=== PATIENT | female | born 1945 | race Caucasian/White ===

== ENCOUNTER 2020-04-08 16:39 | Emergency (ER) | payer MEDICARE, OTHER, SELFPAY ==
[2020-04-08 16:41] VITALS: BP 204/91; PULSE 80; RESP 16; TEMP 36.4; O2SAT 95
--- NOTE | 2020-04-08 16:56 | XR_ITS ---
WS: [id number] Lumbar spine, 3 views, 04/08/2020 Clinical Data: radiculopathy Comparison: None. Findings: No compression fractures or subluxation is seen. Degenerative disc narrowing at L5-S1 is seen. There is a grade 1 spondylolisthesis of L4 on L5 of 0.6 cm.Osteoarthritic spurring of the lateral aspects o f the L2, L3 and L4 vertebral bodies is noted. The transverse processes and SI joints are unremarkabl e. There are clips in the right upper quadrant from a cholecystectomy. XR/XR lumbar spine 2-3V* [id number] Impression: 1. Moderate osteoarthritis of L2-L4. 2. Degenerative disc narrowing at L5-S1. 3. Anterolisthesis of 0.6 cm of L4 on L5.
[2020-04-08] MEDS: naproxen 500 mg Tablet 250 MG PO (17:25)
[2020-04-08 17:27] VITALS: BP 163/87; PULSE 74; RESP 16; O2SAT 94
--- NOTE | 2020-04-08 17:29 | W.ED.EXTPRO ---
HPI - Extremity Problem General: Chief complaint: Extremity Injury, Lower Stated complaint: left leg pain Time Seen by Provider: 04/08/20 16:42 History of Present Illness: HPI Narrative: This is a 74-year-old female presenting today with left leg pain. The symptoms have been present for several days and are worsening. Today she is barely able to walk due to the pain. Pain gets worse with ambulation and weightbearing. Naprosyn helps to some degree. She has been taking 1 qrcc-gnr-hbohaxg Aleve for the pain. She is concerned about a blood clot as she has a history of polycythemia vera. She has never had a blood clot. She takes an aspirin a day as a preventative measure. She also takes hydroxyurea. She is overdue to have a blood draw. She denies any trauma or fevers. No urinary or GI symptoms. No swelling, numbness, weakness in the leg. She says the pain starts in her left buttock and radiates down and around her leg to the foot. MD Complaint: extremity pain Onset (ago): day(s) (3) Pain Consistency: constant Location: left Severity scale (1-10): 9 Quality: burning and aching Radiation: distal Relieving factors: nothing Exacerbating factors: weight bearing and walking Associated symptoms: Deny chest pain, fever(s) or rash Review of Systems General: Reports: 10 or more systems reviewed and unremarkable except in HPI and below Const: Denies: fever(s), chills, fatigue or malaise Eyes: Denies: change in vision ENMT: Denies: odynophagia Card: Denies: chest pain or swelling of feet/ankles Resp: Denies: dyspnea, productive cough or non-productive cough GI: Denies: abdominal pain, nausea or vomiting : Denies: flank pain or difficulty voiding Musc: Denies: neck pain or back pain Skin/Breast: Denies: rash Neuro: Denies: headache(s), numbness in extremities or weakness in extremities Robert/Lymph: Denies: easy bruising or easy bleeding PFSH ED PFSH: Social History Smoking and tobacco status: never smoked Physical Exam Const: COMMON NORMALS: no acute distress, patient oriented x3, no limitations and alert GENERAL APPEARANCE: cooperative and comfortable HENMT: HEAD & SCALP: normal to inspection FACE & SINUS: normal facial exam Eye: GENERAL EYE: appearance normal, both eyes and all related structures Neck/C-Spine: COMMON NORMALS: supple, no meningeal signs and no JVD Chest: COMMONS NORMALS: normal inspection of the chest Resp: COMMON NORMALS: normal respiratory effort, No use of accessory muscles and clear to auscultation bilaterally AUSCULTATION: clear to auscultation bilaterally Cardio: COMMON NORMALS: no JVD, regular rate, regular rhythm and No murmurs present (Cardio) RATE: regular rate RHYTHM: regular rhythm GI: COMMON NORMALS: Normal to inspection, nondistended, normoactive bowel sounds present, Soft to palpation and non-tender INSPECTION: Yes normal to inspection AUSCULTATION: Yes normoactive bowel sounds PALPATION: Yes Soft to palpation Back/Pelvis: COMMON NORMALS: thoracic and lumbar spine normal to inspection LUMBAR SPINE/LOWER BACK: Yes straight leg raise negative bilaterally Extremity: COMMON NORMALS: normal to inspection Neuro: COMMON NORMALS: patient oriented x3, moves all extremities, no focal motor deficits and no sensory deficits noted SENSORIUM/ORIENTATION: Yes alert MENINGEAL SIGNS: Yes no meningeal signs Psych: COMMON NORMALS: mental status grossly normal, cooperative and normal affect Skin: COMMON NORMALS: no rashes or lesions noted and turgor normal GENERAL SKIN EXAM: no rashes or lesions noted and turgor normal Course Vital Signs: Vital signs: Vital Signs Temperature 97.5 F L 04/08/20 16:41 Pulse Rate 76 04/08/20 18:59 Respiratory Rate 16 04/08/20 18:59 Blood Pressure 164/91 04/08/20 18:59 Pulse Oximetry 95 04/08/20 18:59 MDM - Extremity (Nontraumatic) MDM Narrative: Medical decision making narrative: Nontraumatic left leg pain consistent with a radiculopathy. X-rays show significant osteoarthritis and bone spurring in the spine. She did not want pain medicine but agreed to have a prescription at home in case in the middle of the night she has severe pain. She will continue the Aleve and will follow up with her primary care doctor. We discussed return precautions. Discharge Plan Discharge Patient Disposition: Home, Self-Care Clinical Impression: Sciatica of left side Condition: Stable Prescriptions: New oxycodone 5 mg tablet 5 mg PO Q6H PRN (Reason: pain) Qty: 10 RF: 0 No Action hydroxyurea 500 mg capsule 500 mg PO Q48H RF: 0 aspirin 81 mg Tablet,Delayed Release (Dr/Ec) 81 mg PO DAILY RF: 0 triamcinolone acetonide 0.1 % ointment See Rx Instructions .ROUTE .COMPLEX RF: 0 Aleve 220 mg Tablet 220 mg PO BID PRN (Reason: Pain) RF: 0 losartan 25 mg tablet 25 mg PO DAILY RF: 0 Vitamin D3 25 mcg (1,000 unit) Tablet 25 mcg PO DAILY RF: 0 Discharge Orders: Discharge Order (Routine); Ordered 04/08/20 Ordered By: Starr Barkley Referrals: Danny Hobson DO [Primary Care Provider] - Discharge Diet: Usual diet Discharge Activity: Resume usual activity Patient Instructions: Lumbar Radiculopathy (ED) Discharge Date/Time: 04/08/20 19:02 Coding Level of Care Code ED Destination Sign Repairer for Terrie Fwstone Exam Comprehensive
[2020-04-08 18:59] VITALS: BP 164/91; PULSE 76; RESP 16; O2SAT 95
== END 2020-04-08 19:02 | disposition home or self-care (01) ==
PROVIDERS: Emergency Provider Emergency Medicine; PCP Family Medicine
DX: M54.32 Sciatica, left side (principal); Z79.82 Long term (current) use of aspirin
CPT/HCPCS: 12345; 72100; 99281; 99283

== ENCOUNTER → 2021-06-23 09:44 | Outpatient (BNVA) | payer MEDICARE, OTHER, SELFPAY | PROVIDERS: PCP Family Medicine; Visit Provider Nurse Practitioner Family | DX: Z20.822 Contact with and (suspected) exposure to COVID-19 (principal); J06.9 Acute upper respiratory infection, unspecified | CPT/HCPCS: 87426 ==

== ENCOUNTER → 2021-10-29 10:14 | Outpatient (BNVA) | payer MEDICARE, OTHER, SELFPAY | PROVIDERS: PCP Family Medicine; Visit Provider Podiatrist Foot & Ankle Surgery | DX: M79.671 Pain in right foot (principal) | CPT/HCPCS: 73630 ==

== ENCOUNTER 2021-11-18 15:11 | Outpatient (CLI) | payer MEDICARE, OTHER, SELFPAY ==
--- NOTE | 2021-11-18 15:45 | USCV_ITS ---
Vanita Mcdonald Age: 76 Gender: F : 1945 Exam Date: 11/18/2021 15:05 Ordering Phys: Jeremías Camejo DPM Technologist: Paxton Foley RVGovind [place] [facility] [place]: Pad RIGHT LEFT Brachial 159.00 mmHg Brachial 157.00 mmHg Pressure (mmHg) Waveform Pressure (mmHg) Waveform 166.00 Above Knee 172.00 183.00 Below Knee 196.00 183.00 MUNICIPAL CLERK 166.00 177.00 DPA 146.00 1.15 Ankle/Brachial Index 1.04 91.00 Pre-Exercise Toe Pressure 121.00 Pre-Exercise Toe/Brachial Index 0.76 0.57 FINDINGS Normal resting ALICIA bilaterally Slightly diminished resting ALICIA of 0.57 on the right side Normal resting ALICIA 0.76 on the left side PVR waveforms Blunting of the dicrotic notch bilaterally CONCLUSIONS 1. No significant arterial obstruction on the left side 2. Features of mild peripheral artery disease involving the distal vessels on the right side Dr Jos Langford MD [facility] (Electronically Signed) Final Date: 19 November 2021 18:52 S
== END 2021-11-18 15:12 | disposition home or self-care (01) ==
PROVIDERS: PCP Family Medicine; Visit Provider Podiatrist Foot & Ankle Surgery
DX: R09.89 Other specified symptoms and signs involving the circulatory and respiratory systems (principal); I73.9 Peripheral vascular disease, unspecified
CPT/HCPCS: 93923

== ENCOUNTER 2022-05-04 15:04 | Outpatient (CLI) | payer MEDICARE, OTHER, SELFPAY ==
--- NOTE | 2022-05-04 15:14 | MM_ITS ---
WS: [id number] BILATERAL 3D TOMOSYNTHESIS DIGITAL SCREENING MAMMOGRAPHY WITH CAD CLINICAL INFORMATION: SCREENING HISTORY: Screening mammogram. No current complaints. COMPARISON: [id number] TECHNIQUE: Bilateral CC and MLO views. FINDINGS: Scattered fibroglandular densities bilaterally. A few incidental punctate calcifications. No suspicio us focal mass, asymmetry, calcifications, or architectural distortion. No evidence of malignancy. MM/[place] [id number] IMPRESSION: BI-RADS: 2-Benign FOLLOW UP: 1 Year Follow-up Recommend return to annual screening mammography.
== END 2022-05-04 15:05 | disposition home or self-care (01) ==
LOC: RAD 15:05
PROVIDERS: PCP Family Medicine; Visit Provider Electrodiagnostic Medicine
DX: Z12.31 Encounter for screening mammogram for malignant neoplasm of breast (principal)
CPT/HCPCS: 77063; 77067

== ENCOUNTER → 2022-10-07 08:42 | Outpatient (BNVA) | payer MEDICARE, OTHER, SELFPAY | PROVIDERS: PCP Family Medicine; Visit Provider Podiatrist Foot & Ankle Surgery | DX: M20.11 Hallux valgus (acquired), right foot (principal); R09.89 Other specified symptoms and signs involving the circulatory and respiratory systems; Z01.818 Encounter for other preprocedural examination | CPT/HCPCS: 99213 ==

== ENCOUNTER → 2022-11-22 09:34 | Outpatient (BNVA) | payer MEDICARE, OTHER, SELFPAY | PROVIDERS: PCP Family Medicine; Referring Provider Dermatology; Visit Provider Specialist | DX: M25.551 Pain in right hip (principal); M54.30 Sciatica, unspecified side | CPT/HCPCS: 73502; 99204 ==

== ENCOUNTER → 2022-12-02 11:23 | Outpatient (BNVA) | payer MEDICARE, OTHER, SELFPAY | PROVIDERS: PCP Family Medicine; Visit Provider Podiatrist Foot & Ankle Surgery | DX: L60.0 Ingrowing nail (principal); Z01.818 Encounter for other preprocedural examination; M20.11 Hallux valgus (acquired), right foot; R09.89 Other specified symptoms and signs involving the circulatory and respiratory systems | CPT/HCPCS: 99213 ==

== ENCOUNTER 2023-03-15 12:47 | Outpatient (CLI) | payer MEDICARE, OTHER, SELFPAY ==
--- NOTE | 2023-03-15 13:09 | XR_ITS ---
WS: [id number] DEXA (DUAL ENERGY X-RAY ABSORPTIOMETRY) Bone mineral density was performed using a [employer] machine. HISTORY: POSTMENOPAUSAL COMPARISON: None available. Lumbar spine BMD (L1-L4): 1.098 g/cm2 T score: -0.7 Z score: 0.7 Total hip BMD: Left: 0.862 g/cm2. T score: -1.2 Z score: 0.4 Right: 0.844 g/cm2. T score: -1.3 Z score: 0.3 10 year probability of a major osteoporotic fracture is 13.7%. XR/XR DEXA axial skeleton* [id number] IMPRESSION: OSTEOPENIA based upon the WHO classification for females.
== END 2023-03-15 12:48 | disposition home or self-care (01) ==
LOC: RAD 12:48
PROVIDERS: PCP Family Medicine; Visit Provider Electrodiagnostic Medicine
DX: M85.80 Other specified disorders of bone density and structure, unspecified site (principal); Z78.0 Asymptomatic menopausal state
CPT/HCPCS: 77080

== ENCOUNTER 2023-05-06 12:18 | Outpatient (CLI) | payer MEDICARE, OTHER, SELFPAY ==
--- NOTE | 2023-05-06 13:13 | MM_ITS ---
WS: [id number] Bilateral screening 3D tomosynthesis digital mammogram, 05/06/2023 Clinical Data: SCREENING Comparison: 05/04/2022, 10/04/2018, 09/15/2017, 09/02/2016, 10/02/2014, 10/26/2012, 05/05/2011, 04/29/2010, 1 12/23/2007. Findings: The breast parenchymal pattern shows normal glandular tissue. No spiculated masses or clustered calci fications are seen. There are no secondary signs of carcinoma. MM/[place] [id number] Impression: 1. Negative bilateral mammogram unchanged. 2. Recommend annual screening mammograms. BIRADS: 1-Negative FOLLOW UP: 1 Year Follow-up The CAD coloring checker was used.
== END 2023-05-06 12:19 | disposition home or self-care (01) ==
LOC: RAD 12:21
PROVIDERS: PCP Family Medicine; Visit Provider Electrodiagnostic Medicine
DX: Z12.31 Encounter for screening mammogram for malignant neoplasm of breast (principal)
CPT/HCPCS: 77063; 77067

== ENCOUNTER 2024-02-17 14:40 | Outpatient (CLI) | payer MEDICARE, OTHER, SELFPAY ==
--- NOTE | 2024-02-17 14:43 | USCV_ITS ---
Vanita Mcdonald Age: 78 Gender: F : 1945 Exam Date: 02/17/2024 15:12 Ordering Phys: Ivette Lucio Technologist: CT Exam Location: [facility] – [place] Indication: swelling PROCEDURES: Venous duplex imaging was performed in only the left lower extremity. FINDINGS: dvt CONCLUSIONS DVT LEFT popliteal and peroneal veins Remainder LLE patent Prelim to Ivette DOE at time of study by sonographe Selvin Mejia MD (Electronically Signed) Final Date: 17 February 2024 16:06 S
== END 2024-02-17 14:41 | disposition home or self-care (01) ==
LOC: RAD 14:41
PROVIDERS: PCP Family Medicine; Visit Provider Physician Assistant
DX: R60.0 Localized edema (principal); I82.431 Acute embolism and thrombosis of right popliteal vein; I82.451 Acute embolism and thrombosis of right peroneal vein
CPT/HCPCS: 93971

== ENCOUNTER → 2024-04-24 13:12 | Outpatient (BNVA) | payer MEDICARE, OTHER, SELFPAY | PROVIDERS: PCP Family Medicine; Visit Provider Orthopaedic Surgery | DX: M54.9 Dorsalgia, unspecified (principal) | CPT/HCPCS: 72110; 99204 ==

== ENCOUNTER 2024-05-10 15:44 | Emergency (ER) | payer MEDICARE, SELFPAY ==
[2024-05-10 15:45] VITALS: BP 184/78; PULSE 110; RESP 18; TEMP 36.6; O2SAT 98
--- NOTE | 2024-05-10 15:57 | ED_ITS ---
HPI - Wound/Laceration General: Chief Complaint: Wound/Laceration Stated Complaint: hand wound Time Seen by Provider: 05/10/24 15:57 History of Present Illness: 79-year-old female was shucking some cor n when she accidentally cut the back of her left hand. Patient has a superficial laceration approximately 3 cm that is well-approximated to the left hand. Bleeding is controlled. Patient appears nontoxic. Patient was concerned due to being on a blood thinner. Review of Systems General: Reports: 10 or more systems reviewed and unremarkable except in HPI and below Skin/Breast: Reports: new lesions PFS ED PFSH: Social History Smoking and tobacco/nicotine status: never used tobacco/nicotine Physical Exam Const: COMMON NORMALS: alert HENMT: COMMON NORMALS: normocephalic HEAD & SCALP: normocephalic Neck/C-Spine: COMMON NORMALS: full ROM Resp: COMMON NORMALS: normal respiratory effort and clear to auscultation bilaterally AUSCULTATION: clear to auscultation bilaterally Cardio: COMMON NORMALS: regular rate and regular rhythm RATE: regular rate RHYTHM: regular rhythm : COMMON NORMALS: Yes no CVA tenderness BLADDER/KIDNEY EXAM: Yes no CVA tenderness Back/Pelvis: COMMON NORMALS: no CVA tenderness Extremity: RIGHT UPPER EXTREMITY: Yes hand & digits (3 cm superficial laceration to the dorsal left hand) Right hand and digits: Yes inspection, Yes palpation, Yes ROM exam, Yes neurovascular exam and Yes tendon exam Neuro: SENSORIUM/ORIENTATION: Yes alert Skin: TRAUMA: laceration (3 cm dorsal left hand) Course Vital Signs: Vital signs: Vital Signs Temperature 97.8 F 05/10/24 15:45 Pulse Rate 110 H 05/10/24 15:45 Respiratory Rate 18 05/10/24 15:45 Blood Pressure 184/78 05/10/24 15:45 Pulse Oximetry 98 05/10/24 15:45 Oxygen Delivery Me thod Room Air 05/10/24 15:45 MDM - Wound/Laceration Medical Decision Making 79-year-old female comes in today for complaints of laceration to the dorsal left hand. On exam patient has a 3 cm laceration that is well-approximated with bleeding controlled. No sign of tendon injury or foreign body is noted. No sign of fracture is noted. Differential diagnosis includes laceration, foreign body, fracture. Patient cannot recall her tetanus and it was updated. Wound was well-approximated and skin adhesive was applied over the wound to help secure it. Patient was then placed in a OpSite dressing and a light pressure dressing to help maintain bleeding controlled. Patient reports understanding of care plan. Patient was placed on oral antibiotics for prophylaxis. Patient reports understanding of care plan and need for follow-up or return to the ER. No radiology studies performed this visit Discharge Plan Discharge Patient Disposition: Home Clinical Impression: Laceration of hand, left Qualifiers: Encounter type: initial encounter Foreign body presence: without foreign body Qualified Code(s): S61.412A - Laceration without foreign body of left hand, initial encounter Condition: Stable Prescriptions: New amoxicillin-pot clavulanate 875-125 mg tablet 1 tab PO BID Qty: 14 0RF No Action prednisone 20 mg tablet 20 mg PO DAILY Qty: 15 0RF Rx Instructions: 60Mg for 3 days 40MG for 2 days 20Mg for 2 days amoxicillin-pot clavulanate 875-125 mg tablet 1 tab PO BID 5 Days Qty: 10 0RF benzonatate 200 mg capsule 200 mg PO BID PRN (Reason: cough) 5 Days Qty: 10 0RF losartan 25 mg tablet See Rx Instructions .ROUTE .COMPLEX Qty: 90 3RF Dose Instruction: TAKE 1 TABLET BY MOUTH EVERY DAY DIRECTED Rx Instructions: TAKE 1 TABLET BY MOUTH EVERY DAY DIRECTED hydroxyurea 500 mg capsule 500 mg PO Q48H aspirin 81 mg Tablet,Delayed Release (Dr/Ec) 81 mg PO DAILY Aleve 220 mg Tablet 220 mg PO BID PRN (Reason: Pain) Vitamin D3 25 mcg (1,000 unit) Tablet 25 mcg PO DAILY Discharge Orders: Discharge ED (Routine); Ordered 05/10/24 Ordered By: Rosendo Fitzgerald Referrals: TALAT STANTON MD [Primary Care Provider] - Discharge Diet: Usual diet Discharge Activity: Increase activity as tolerated Patient Instructions: Laceration (ED) Activity Restrictions/Additional Instructions: Keep wound clean and dry. Allow the OpSite dressing to come off in 1 week. Remove pressure dressing within 2 days. Take oral antibiotic 1 tablet twice a d ay for the next 7 days. Drink plenty of water with medication. Follow-up with primary care for further instructions. Return to ED for increasing redness and swelling to the hand, increasing pain to the hand, or increase in bleeding from the wound. Coding Level of Care Code ED Regional Transportation Manager for Terrie Vallecillo
[2024-05-10] MEDS: tetanus-dipt-pertussis 0.5 mL SDV IM (16:25)
[2024-05-10 16:36] VITALS: BP 176/82; PULSE 98; RESP 16; TEMP 36.6; O2SAT 99
== END 2024-05-10 16:31 | disposition home or self-care (01) ==
PROVIDERS: Emergency Provider Nurse Practitioner Family; PCP Family Medicine
DX: S61.412A Laceration without foreign body of left hand, initial encounter (principal); Z23 Encounter for immunization; Z79.899 Other long term (current) drug therapy; Z79.82 Long term (current) use of aspirin; W26.8XXA Contact with other sharp object(s), not elsewhere classified, initial encounter
CPT/HCPCS: 90715; 99283

== ENCOUNTER 2024-05-29 08:51 | Outpatient (CLI) | payer MEDICARE, OTHER, SELFPAY ==
--- NOTE | 2024-05-29 09:30 | MR_ITS ---
WS: [id number] MRI LUMBAR SPINE NONCONTRAST HISTORY: Back pain, pain into RIGHT hip. COMPARISON: None available. TECHNIQUE: Sagittal and axial multisequence imaging is submitted. Straightening and slight reversal of the normal lordosis in the mid cervical spine. Increase in thora cic kyphosis. L3 anterolisthesis by 3 mm. L4 anterolisthesis by 6 mm. L5 retrolisthesis by 3 mm. No acute fracture or marrow edema. Mild disc space narrowing and desiccation at L5-S1. Conus terminates normally at L1-2 disc level. L1-L2: Mild disc bulging and facet disease. L2-L3: Mild annular disc bulging with a shallow RIGHT paracentral disc protrusion. There is mild encr oachment and narrowing the central canal. More significant contact on the traversing RIGHT L3 nerve r oot in the subarticular recess. L3-L4: Marked annular disc bulging with mild ligamentum flavum and moderate facet arthritis. Fluid in the facet joints. There is a central disc protrusion which extends just slightly cephalad to the dis c level. Moderate central, bilateral subarticular recess and bilateral foraminal narrowing. There is encroachment upon the L3 and L4 nerve roots. Greatest upon the L4 nerve roots. L4-L5: Moderate annular disc bulging with facet disease. Mild central with bilateral subarticular rec ess and foraminal stenosis. L5-S1: Mild annular disc bulging without significant stenosis. Small osteophytes in the LEFT foramen. Retroperitoneum is negative. MR/MR lumbar spine wo con* [id number] IMPRESSION: 1. L3 and L4 anterolisthesis by 3 and 6 mm respectively. 2. L3-4: Moderate central, bilateral subarticular recess and foraminal stenosi s. Encroachment upon both the L3 and L4 nerve roots but greatest the traversing L4 nerve roots. 3. L4-5: Mild central with bilateral subarticular recess and foraminal stenosi s. 4. L2-3: Shallow RIGHT paracentral disc protrusion. There is mild disc contact on the traversing nerve roots, most significant on the RIGHT L3 nerve root.
== END 2024-05-29 08:52 | disposition home or self-care (01) ==
PROVIDERS: PCP Family Medicine; Visit Provider Orthopaedic Surgery
DX: M51.37 Other intervertebral disc degeneration, lumbosacral region (principal); M25.78 Osteophyte, vertebrae; M48.061 Spinal stenosis, lumbar region without neurogenic claudication; M43.16 Spondylolisthesis, lumbar region; M51.26 Other intervertebral disc displacement, lumbar region
CPT/HCPCS: 72148

== ENCOUNTER → 2024-06-07 13:16 | Outpatient (BNVA) | payer MEDICARE, OTHER, SELFPAY | PROVIDERS: PCP Family Medicine; Visit Provider Orthopaedic Surgery | DX: Z09 Encounter for follow-up examination after completed treatment for conditions other than malignant neoplasm (principal) | CPT/HCPCS: 99214 ==

== ENCOUNTER → 2024-07-10 13:59 | Outpatient (BNVA) | payer MEDICARE, OTHER, SELFPAY | PROVIDERS: PCP Electrodiagnostic Medicine; Visit Provider Orthopaedic Surgery | DX: M48.062 Spinal stenosis, lumbar region with neurogenic claudication (principal) | CPT/HCPCS: 99214 ==

== ENCOUNTER 2024-07-31 10:18 | Outpatient (CLI) | payer MEDICARE, OTHER, SELFPAY ==
[2024-07-31 10:41] LABS: Basophils % 0.5 %; Eosinophils # 0.1 10^3/uL (0.0-0.8); Hematocrit 45.2 % (36-47); Lymphocytes # 1.8 10^3/uL (0.8-4.8); Lymphocytes % 23.8 %; Mean Corpuscular Hemoglobin 27.2 pg (27-33); Mean Platelet Volume 11.3 fL (7.4-10.4); Monocytes # 0.6 10^3/uL (0.2-0.9); Monocytes % 7.2 %; Neutrophils # 5.08 10^3/uL (1.8-7.7); Neutrophils % 66.2 %; Nucleated Red Blood Cells % 0 %; Platelet Count 150 10^3/cmm (157-399); Red Blood Count 4.81 10^6/uL (3.85-5.65); Red Cell Distribution Width 15.7 % (12.1-15.1); White Blood Count 7.68 10^3/uL (3.29-11.43)
[2024-07-31 10:49] LABS: Bilirubin Urine Negative (Negative); Blood Urine Trace (Negative); Glucose Urine UA Negative (Normal); Ketones Urine Trace (Negative); Leukocyte Esterase Urine Trace (Negative); Nitrate Urine Negative (Negative); Protein Urine Trace (Negative); Urine Appearance Clear (CLEAR); Urine Color Dark Yellow (Yellow)
[2024-07-31 10:57] LABS: Albumin Level 3.7 g/dL (3.5-5.2); Alkaline Phosphatase 100 U/L (35-105); Blood Urea Nitrogen 19 mg/dL (8-23); Calcium 8.7 mg/dL (8.5-10.5); Carbon Dioxide 22 mmol/L (22-29); Chloride 105 mmol/L (98-107); Globulin 3.6 g/dL (1.3-4.6); Glucose 107 mg/dL (65-115); Osmolality Calculated 289 mOsm/kg (285-295); Sodium 138 mmol/L (136-145); Total Bilirubin 0.5 mg/dL (0.15-1.2); Total Protein 7.3 g/dL (6.6-8.7)
[2024-07-31 11:11] LABS: Alanine Aminotransferase 18 U/L (0-33); Anion Gap 15.9 (5-19); Aspartate Amino Transferase 30 U/L (0-32); Potassium 4.9 mmol/L (3.5-5.1)
[2024-07-31 11:26] LABS: UA Manual Slide Review YES; UA Slide Review UA Slide Review Perf
[2024-07-31 11:29] LABS: Add Urine Microscopic? YES; Bacteria Urine TRACE /hpf; Mucus Urine 1+ /hpf; RBC Urine 0-4 /hpf (0-2); WBC Urine 0-4 /hpf (0-5)
[2024-07-31 11:30] LABS: Add Urine Culture? No; Amorphous Sediment Urine TRACE /hpf
== END 2024-07-31 10:19 | disposition home or self-care (01) ==
LOC: LAB 10:21
PROVIDERS: PCP Electrodiagnostic Medicine; Visit Provider Orthopaedic Surgery
DX: Z01.818 Encounter for other preprocedural examination (principal)
CPT/HCPCS: 36415; 80053; 81001; 85025

== ENCOUNTER 2024-08-20 05:38 | Day surgery (SDC) | payer MEDICARE, OTHER, SELFPAY ==
--- NOTE | 2024-08-17 09:42 | SUR.PREOP ---
OPS STAFF CONTACTED 'S OFFICE REGARDING UA. PER OFFICE, THIS HAS BEEN TAKEN CARE OF & PT IS CLEARED FOR SURGERY.
[2024-08-20] VITALS (11 sets, daily range): BP systolic 108–169; BP diastolic 50–90; PULSE 74–103; RESP 17–26; TEMP 36.1–36.7; O2SAT 92–100; BMI 29.9
[2024-08-20 06:33] LABS: Bilirubin Urine Negative (Negative); Blood Urine Trace (Negative); Glucose Urine UA Negative (Normal); Ketones Urine Trace (Negative); Leukocyte Esterase Urine Trace (Negative); Nitrate Urine Negative (Negative); Protein Urine 1+ (Negative); Specific Gravity, Urine 1.023 (1.005-1.030); Urine Appearance Cloudy (CLEAR); Urine Color Dark Yellow (Yellow)
[2024-08-20] MEDS: sodium chloride 0.9% 1,000 ML 30 ML IV (06:36)
[2024-08-20 06:38] LABS: Bacteria Urine None Seen /hpf; Hyaline Casts Urine 19.02 /lpf; WBC Urine 0-5 /hpf (0-5)
--- NOTE | 2024-08-20 06:43 | ANES.PREANE2 ---
Pre-Anesthetic Assessment Height/Weight: Height 1.65 m Weight 81.647 kg Temp Pulse Resp BP Pulse Ox O2 Del Method 98.0 F 103 H 17 169/90 97 Room Air 08/20/24 06:05 08/20/24 06:05 08/20/24 06:05 08/20/24 06:05 08/20/24 06:05 08/20/24 06:15 Preop Diagnosis: Lumbar stenosis with neurogenic claudication Operation Date: 08/20/24 07:00 Proposed Procedures p Lumbar Spine Decompression Lumbar Decompression(Not Applicable) - Tommy Sharpe, DO Familial anesthetic complications: Family states her heart stopped during a hysterectomy when she was in her 40s, because she got too much anesthesia. They say chest compressions were performed, but denied any ICU stay after the procedure. She went directly to the floor. Suspect probable transient bradycardia/vagal response due to abdominal traction Was Beta Ranjana taken within 24 hours: N/A Was Clonidine taken within 24 hours: N/A Last intake: Intake Last Liquid Date 08/19/24 Last Liquid Time 23:30 Last Solid Date 08/19/24 Last Solid Time 18:00 Social No alcohol and No tobacco Exam alert, oriented x 3, clear to auscultation bilaterally and regular rate & rhythm Airway Mallampati: Class I Dentition: false CV/HEM Hypertension Polycythemia on hydroxyurea Anesthetic Plan ASA status: 3 Anesthesia: General Risk of > 500 ml blood loss (7ml/kg in children): No Medications/Allergies Home Medications Medication Instructions Recorded Confirmed Last Taken Type aspirin 81 mg tablet,delayed 81 mg PO DAILY 04/08/20 08/20/24 1 Week Ago History release ~08/10/24 cholecalciferol (vitamin D3) 25 25 mcg PO DAILY 04/08/20 08/20/24 08/16/24 History mcg (1,000 unit) tablet (Vitamin D3) hydroxyurea 500 mg capsule 500 mg PO Q48H 04/08/20 08/20/24 08/18/24 History naproxen sodium 220 mg tablet 220 mg PO BID PRN Pain 04/08/20 08/20/24 08/15/24 History (Aleve) losartan 25 mg tablet 50 mg PO DAILY 08/17/24 08/20/24 08/19/24 History Allergies Allergy/AdvReac Type Severity Reaction Status Date / Time acetaminophen [From Tylenol] Allergy Unknown Verified 06/07/24 14:04 celecoxib [From Celebrex] Allergy Unknown Verified 06/07/24 14:04 codeine Allergy Unknown Verified 06/07/24 14:04 Current Medications Generic Name Dose Route Start Last Admin Trade Name Freq PRN Reason Stop Dose Admin Sodium Chloride 1,000 mls @ 30 mls/hr 08/20/24 06:00 08/20/24 06:36 Sodium Chloride 0.9% IV 08/21/24 05:59 30 mls/hr .Q24H DELANEY Administration PFSH Anesthesia Social History Smoking and tobacco/nicotine status: never used tobacco/nicotine Data Anesthesia Cardiac Studies: No Data to Display
--- NOTE | 2024-08-20 06:47 | W.PM.OPSUD ---
Surgery/Procedure H&P Update DATE OF PROCEDURE: August 20, 2024 DATE H&P PERFORMED: 08/09/24 H&P UPDATE INFORMATION: I have reviewed H&P completed within last 30 days, I have examined patient prior to procedure and No changes to prior documentation PREOP DIAGNOSIS: Lumbar stenosis with neurogenic claudication PLANNED PROCEDURE: Operation Date: 08/20/24 07:00 Proposed Procedures p Lumbar Spine Decompression Lumbar Decompression(Not Applicable) - Tommy Sharpe DO
[2024-08-20] MEDS: ceFAZolin 2,000 mg SDV 2000 MG IVP (06:59)
[2024-08-20] MEDS: lidocaine-epi 1% 20 mL INJ 10 ML INJECTION (07:48)
--- NOTE | 2024-08-20 08:34 | P.OP_ITS ---
Operative Report Date of procedure: August 20, 2024 Pre-op diagnosis: Lumbar stenosis neurogenic claudication Post-op diagnosis: same Procedure done: 1. L3-4 laminectomy with partial facetectomy 2. L4-5 laminectomy with partial facetectomy Surgeon: Tommy Sharpe DO Estimated blood loss (mL): 25 Complications: Dural tear on right side at L3-4 Procedure: 1. L3-4 laminectomy with partial facetectomy 2. L4-5 laminectomy with partial facetectomy Patient is brought to the operative suite. After undergoing anesthesia they are placed in the prone position. All areas of impingement are well padded. Patient is then prepped and draped in the normal sterile fashion. A skin incision is made over the L3/4 level. This is confirmed under c-arm guidance. A series of dilators are passed and the tubular retractor is docked on the L3 lamina. A bovie is used to clear the soft tissue off the lamina and the L 3/4 facet joint. A high speed vielka is then used to perform the laminectomy and take down the medial aspect of the L 3/4 facet joint. A kerrison rongeure was then used to take down the remaining lamina and smooth the edge of the laminectomy up to the point where the ligamentum flavum attaches. Attention was then brought to the medial aspect of the facet joint. The remaining medial aspect of the superior and inferior aspect of the facet joint were taken down with the kerrison from the pedicle of L3 to L 4. The facet join t had significant hypertrophy. Attention was then brought to the Ligamentum Flavum. The ligament was taken down from the lamina of L3 to L4 and out medially to the remaining facet joint. The ligament was thick. The dura was then exposed. There is a small dural tear on the contralateral side on the right side. This was treated with the patch and DuraSeal The L3 nerve was then traced with a curette out the L3/4 foramen and found to be adequately decompressed. The L4 nerve was traced with a curette around the L4 pedicle. The lateral recess was opened with a kerrison helping to further dec ompress the L4 nerve. Wound is then irrigated copiously with saline and surgiflo is used to stop any bleeding. The tubular retractor is removed A skin incision is made over the L4/5 level. This is confirmed under c-arm guidance. A series of dilators are passed and the tubular retractor is docked on the L4 lamina. A bovie is used to clear the soft tissue off the lamina and the L 4/5 facet joint. A high speed vielka is then used to perform the laminectomy and take down the medial aspect of the L 4/5 facet joint. A kerrison rongeure was then used to take down the remaining lamina and smooth the edge of the laminectomy up to the point where the ligamentum flavum attaches. Attention was then brought to the medial aspect of the facet joint. The remaining medial aspect of the superior and inferior aspect of the facet joint were taken down with the kerrison from the pedicle of L4 to L 5. The facet joint had significant hypertrophy. Attention was then brought to the Ligamentum Flavum. The ligament was taken down from the lamina of L4 to L5 and out medially to the remaining facet joint. The ligament was thick. The dura was then exposed. The dura was in good repair. The L4 nerve was then traced with a curette out the L4/5 foramen and found to be adequately decompressed. The L5 nerve was traced with a curette around the L5 pedicle. The lateral recess was opened with a kerrison helping to further decompress the L5 nerve. Wound is then irrigated copiously with saline and surgiflo is used to stop any bleeding. The tubular retractor is removed and the wound is closed with vicryl and monocryl suture. Glue is then used to protect the wound. A sterile dressing is then placed. Patient was then placed in the supine position and transferred to the PACU in stable condition.
--- NOTE | 2024-08-20 08:52 | XR_ITS ---
WS: [id number] Exam: XR lumbar spine 1V [id number] Date/Time of Exam: 08/20/2024 8:52 AM Reason For Exam: or pic, decompression Intraoperative AP C-arm images of the lower lumbar spine are submitted. Images were obtained for loca lization purposes.
--- NOTE | 2024-08-20 10:23 | PC.NURSE ---
drsging to back noted with blood. reinforced drsg patient instructed to watch and contact if any furter problems occur.
--- NOTE | 2024-08-20 10:30 | ANE.PACU2 ---
Inpatient post-anesthesia follow up: Airway intact: Yes Vital signs: Temperature 97.6 F Pulse Rate 79 Respiratory Rate 18 Blood Pressure 140/64 Pulse Oximetry 94 Oxygen Delivery Me thod Room Air Oxygen Flow Rate 1.0 Fraction of Inspir ed Oxygen Hydration adequate: Yes Nausea and vomiting: No Pain level: 1 Mental status: Baseline
== END 2024-08-20 10:37 | disposition home or self-care (01) ==
PROVIDERS: PCP Electrodiagnostic Medicine; Visit Provider Orthopaedic Surgery
PROC: (CPT 63005; principal; 2024-08-20 07:00)
DX: M48.062 Spinal stenosis, lumbar region with neurogenic claudication (principal); I10 Essential (primary) hypertension; Z79.82 Long term (current) use of aspirin
CPT/HCPCS: 63047; 63048; 72020; 76000; 81001; J0690; J1100; J2371; J2405; J2704; J2710; J3010; J3490; J7030

== ENCOUNTER 2024-08-21 18:46 | Emergency (ER) | payer MEDICARE, OTHER, SELFPAY ==
[2024-08-21 19:03] VITALS: BP 145/70; PULSE 111; RESP 18; TEMP 37.3; O2SAT 92
[2024-08-21] MEDS: dexamethasone 10 mg/mL INJ IM (20:53)
[2024-08-21] MEDS: ketorolac 60 mg/2 mL INJ IM (20:53)
--- NOTE | 2024-08-21 21:11 | W.ED.BACK ---
HPI - Back Pain/Injury General: Chief Complaint: Back Pain/Injury Stated Complaint: Pain From Surgery Yesterday Time Seen by Provider: 08/21/24 20:06 Source: patient Mode of arrival: wheelchair Limitations: no limitations History of Present Illness: Patient is a 79-year-old female who presents to the emergency department 1 day postop from lumbar decompression surgery. She is stating that she is just having an increase in pain, has not been getting much relief from her oxycodone. Most of her pain is reported to be in the left hip region. She is not reporting any distal paralysis or weakness, has remained ambulatory. No issues with the incision. No fevers, nausea or vomiting, or other symptoms to report. MD elicited complaint: back pain Pertinent past history: back surgery Onset (ago): day(s) (1) Timing: constant Severity: severe Location: lumbar spine Associated symptoms: Deny abdominal pain, chills, fever(s), nausea or vomiting Treatments prior to arrival: prescription analgesics Related Data Home Medications Medication Instructions Recorded Confirmed aspirin 81 mg tablet,delayed 81 mg PO DAILY 04/08/20 08/20/24 release cholecalciferol (vitamin D3) 25 25 mcg PO DAILY 04/08/20 08/20/24 mcg (1,000 unit) tablet (Vitamin D3) hydroxyurea 500 mg capsule 500 mg PO Q48H 04/08/20 08/20/24 naproxen sodium 220 mg tablet 220 mg PO BID PRN Pain 04/08/20 08/20/24 (Aleve) losartan 25 mg tablet 50 mg PO DAILY 08/17/24 08/20/24 Previous Rx's Medication Instructions Recorded oxycodone 5 mg tablet 5 mg PO Q6H PRN pain 7 days #28 08/20/24 tabs Allergies Allergy/AdvReac Type Severity Reaction Status Date / Time acetaminophen [From Tylenol] Allergy Unknown Verified 08/21/24 19:09 celecoxib [From Celebrex] Allergy ALGY-Rash Verified 08/21/24 19:09 codeine Allergy Unknown Verified 08/21/24 19:09 Review of Systems General: Reports: 10 or more systems reviewed and unremarkable except in HPI and below Const: Denies: fever(s) or chills Card: Denies: chest pain Resp: Denies: dyspnea or productive cough GI: Denies: abdominal pain, nausea, vomiting or diarrhea : Denies: flank pain Musc: Reports: back pain, extremity pain and limited range of motion; Denies: neck pain, extremity swelling, joint pain, joint swelling, joint redness, joint warmth or muscle weakness Skin/Breast: Denies: rash Neuro: Denies: headache(s), numbness in extremities or weakness in extremities PFSH ED PFSH: Social History Smoking and tobacco/nicotine status: never used tobacco/nicotine Physical Exam Const: COMMON NORMALS: patient oriented x3, no limitations, alert and well nourished OTHER: Appearing slightly uncomfortable in wheelchair, she does stand on her own during examination of her back, no deficits here HENMT: COMMON NORMALS: normocephalic and atraumatic HEAD & SCALP: normocephalic and atraumatic Neck/C-Spine: COMMON NORMALS: full ROM, supple and no meningeal signs Resp: COMMON NORMALS: normal respiratory effort, No use of accessory muscles and clear to auscultation bilaterally AUSCULTATION: clear to auscultation bilaterally Cardio: COMMON NORMALS: regular rate and regular rhythm RATE: regular rate RHYTHM: regular rhythm Back/Pelvis: OTHER: Overlying bandage to lumbar area, no acute abnormalities noted at this time. No significant spinous process tenderness. Extremity: COMMON NORMALS: normal to inspection, full ROM, capillary refill normal, no joint enlargement and no clubbing, cyanosis or edema NARRATIVE EXTREMITY EXAM: No real reproducible tenderness to palpation of the left or right lower extremity. No distal swelling. Good peripheral pulses. Good strength distally. Deep tendon reflexes intact. Neuro: COMMON NORMALS: patient oriented x3, moves all extremities, no focal motor deficits and no sensory deficits noted SENSORIUM/ORIENTATION: Yes alert MENINGEAL SIGNS: Yes no meningeal signs Skin: COMMON NORMALS: no rashes or lesions noted GENERAL SKIN EXAM: no rashes or lesions noted Course Vital Signs: Vital signs: Vital Signs Temperature 99.1 F 08/21/24 19:03 Pulse Rate 111 H 08/21/24 19:03 Respiratory Rate 18 08/21/24 19:03 Blood Pressure 145/70 08/21/24 19:03 Pulse Oximetry 92 08/21/24 19:03 Oxygen Delivery Me thod Room Air 08/21/24 19:03 MDM - Back Pain/Injury Medical Decision Making Patient 1 day postop from lumbar decompression surgery. Has been taking oxycodone, not reporting much relief at this time. She is not reporting any concerning symptoms in regards to distal paralysis or bowel or bladder issues. I do believe that this is physiologic postoperative pain, she is given a steroid shot here as well as Toradol. I did speak with her surgeon, Dr. Sharpe, who states that this can follow-up routinely already as planned. Discussed this with patient and family in the room, they agree with this plan and return precautions were given. No radiology studies performed this visit Discharge Plan Discharge Patient Disposition: Home Clinical Impression: Postoperative back pain Condition: Stable Prescriptions: No Action hydroxyurea 500 mg capsule 500 mg PO Q48H aspirin 81 mg Tablet,Delayed Release (Dr/Ec) 81 mg PO DAILY Hold Instructions: Resume on 08/22/24. naproxen sodium [Aleve] 220 mg Tablet 220 mg PO BID PRN (Reason: Pain) Hold Instructions: Resume on 08/22/24. cholecalciferol (vitamin D3) [Vitamin D3] 25 mcg (1,000 unit) Tablet 25 mcg PO DAILY losartan 25 mg tablet 50 mg PO DAILY Rx Instructions: TAKE 2 TABLET BY MOUTH EVERY DAY DIRECTED oxycodone 5 mg tablet 5 mg PO Q6H PRN (Reason: pain) 7 Days Qty: 28 0RF Discharge Orders: Discharge ED (Routine); Ordered 08/21/24 Ordered By: Joe Oneil Referrals: French Hernadez DO [Primary Care Provider] - Patient Instructions: Opioid Safety, Pain Management Activity Restrictions/Additional Instructions: Follow-up with Dr. Sharpe as scheduled. Continue taking your pain medications. If you develop any severe weakness or paralysis in your lower extremities, return for reevaluation. Other general postoperative care as normal. Coding Level of Care Code ED Costumed Character for Terrei Vallecillo
[2024-08-21 21:12] VITALS: BP 138/91; PULSE 98; O2SAT 98
== END 2024-08-21 21:13 | disposition home or self-care (01) ==
PROVIDERS: Emergency Provider Physician Assistant; PCP Electrodiagnostic Medicine
DX: M54.89 Other dorsalgia (principal); Z79.82 Long term (current) use of aspirin
CPT/HCPCS: 96372; 99284; J1100; J1885

== ENCOUNTER 2024-08-24 03:06 | Emergency (ER) | payer MEDICARE, OTHER, SELFPAY ==
[2024-08-24 03:12] VITALS: BP 226/96; PULSE 107; RESP 18; TEMP 37.1; O2SAT 94; BMI 29.9
[2024-08-24 03:15] VITALS: BP 131/77; PULSE 104; O2SAT 93
[2024-08-24] MEDS: ketorolac 30 mg/mL INJ IVP (03:32)
[2024-08-24] MEDS: dexamethasone 10 mg/mL INJ IVP (03:32)
[2024-08-24] MEDS: sennosides-docusate Tablet 2 TAB PO (03:32)
--- NOTE | 2024-08-24 03:57 | ED_ITS ---
HPI - Back Pain/Injury General: Chief Complaint: Back Pain/Injury Stated Complaint: Post op , Back pain Time Seen by Provider: 08/24/24 03:07 History of Present Illness: Patient brought in by EMS with complaint of back pain. Patient had surgery approximately 3 to [address] Sharpe. Patient was seen yesterday for postop back pain and given Toradol and Decadron. Patient said it did help. Patient denies any nausea vomiting fever chills cough colds etc. Related Data Home Medications Medication Instructions Recorded Confirmed aspirin 81 mg tablet,delayed 81 mg PO DAILY 04/08/20 08/20/24 release cholecalciferol (vitamin D3) 25 25 mcg PO DAILY 04/08/20 08/20/24 mcg (1,000 unit) tablet (Vitamin D3) hydroxyurea 500 mg capsule 500 mg PO Q48H 04/08/20 08/20/24 naproxen sodium 220 mg tablet 220 mg PO BID PRN Pain 04/08/20 08/20/24 (Aleve) losartan 25 mg tablet 50 mg PO DAILY 08/17/24 08/20/24 Previous Rx's Medication Instructions Recorded oxycodone 5 mg tablet 5 mg PO Q6H PRN pain 7 days #28 08/20/24 tabs Allergies Allergy/AdvReac Type Severity Reaction Status Date / Time acetaminophen [From Tylenol] Allergy Unknown Verified 08/21/24 19:09 celecoxib [From Celebrex] Allergy ALGY-Rash Verified 08/21/24 19:09 codeine Allergy Unknown Verified 08/21/24 19:09 Review of Systems General: Reports: 10 or more systems reviewed and unremarkable except in HPI and below PFSH ED 2 PFSH: Social History Smoking and tobacco/nicotine status: never used tobacco/nicotine Physical Exam Const: COMMON NORMALS: no acute distress, average body habitus, patient oriented x3, no limitations, healthy appearing, alert and well nourished HENMT: COMMON NORMALS: normocephalic, atraumatic, hearing grossly normal bilaterally, external ears normal, Normal external nose present and moist oral mucous membranes HEAD & SCALP: normocephalic and atraumatic NOSE: Normal external nose present EXTERNAL EAR: Yes external ears normal Neck/C-Spine: COMMON NORMALS: no JVD Chest: COMMONS NORMALS: normal inspection of the chest and normal palpation of entire chest wall Resp: COMMON NORMALS: normal respiratory effort, No retractions, No use of accessory muscles and clear to auscultation bilaterally AUSCULTATION: clear to auscultation bilaterally Cardio: COMMON NORMALS: no JVD, regular rate, regular rhythm, S1 normal heart sound present, S2 normal heart sound present, No gallops present (Cardio), No clicks present (Cardio), No murmurs present (Cardio) and No rub (Cardio) RATE: regular rate RHYTHM: regular rhythm HEART SOUNDS: S1 normal heart sound present and S2 normal heart sound present GI: COMMON NORMALS: Normal to inspection, nondistended, normoactive bowel sounds present, Soft to palpation, non-tender, No hepatosplenomegaly present and no masses PALPATION: Yes Soft to palpation and Yes No hepatosplenomegaly present Neuro: COMMON NORMALS: patient oriented x3 SENSORIUM/ORIENTATION: Yes alert Course Vital Signs: Vital signs: Vital Signs Temperature 98.7 F 08/24/24 03:12 Pulse Rate 104 H 08/24/24 03:15 Respiratory Rate 18 08/24/24 03:12 Blood Pressure 131/77 08/24/24 03:15 Pulse Oximetry 93 08/24/24 03:15 MDM - Back Pain/Injury Medical Decision Making Patient was given 30 mg Toradol IV, dexamethasone 10 mg IV and senna S2 tabs. Patient said this helped her pain. Patient be discharged back home. Medical Records I reviewed the patient's medical records. Labs I reviewed the patient's lab results. No radiology studies performed this visit Discharge Plan Discharge Patient Disposition: Home Clinical Impression: Postoperative back pain Condition: Stable Prescriptions: No Action hydroxyurea 500 mg capsule 500 mg PO Q48H aspirin 81 mg Tablet,Delayed Release (Dr/Ec) 81 mg PO DAILY Hold Instructions: Resume on 08/22/24. naproxen sodium [Aleve] 220 mg Tablet 220 mg PO BID PRN (Reason: Pain) Hold Instructions: Resume on 08/22/24. cholecalciferol (vitamin D3) [Vitamin D3] 25 mcg (1,000 unit) Tablet 25 mcg PO DAILY losartan 25 mg tablet 50 mg PO DAILY Rx Instructions: TAKE 2 TABLET BY MOUTH EVERY DAY DIRECTED oxycodone 5 mg tablet 5 mg PO Q6H PRN (Reason: pain) 7 Days Qty: 28 0RF Discharge Orders: Discharge ED (Routine); Ordered 08/24/24 Ordered By: Wang Marcial Referrals: French Hernadez DO [Primary Care Provider] - 1 week Patient Instructions: Back Pain (ED) Activity Restrictions/Additional Instructions: Please continue take your regular pain medicine provided by Dr. Sharpe. Please keep his normal follow-up. If your pain continues to stay worsen please follow- up with your family practitioner for further evaluation and treatment. Coding Level of Care Code ED Shot Core Drill Operator Helper for Terrie Vallecillo
[2024-08-24 04:29] VITALS: BP 150/75; PULSE 102; O2SAT 92
== END 2024-08-24 04:27 | disposition home or self-care (01) ==
PROVIDERS: Emergency Provider Emergency Medicine; PCP Electrodiagnostic Medicine
DX: G89.18 Other acute postprocedural pain (principal); M54.9 Dorsalgia, unspecified
CPT/HCPCS: 96374; 96375; 99284; J1100; J1885

== ENCOUNTER 2024-08-24 10:33 | Emergency (ER) | payer MEDICARE, OTHER, SELFPAY ==
[2024-08-24 10:34] VITALS: BP 220/87; PULSE 113; RESP 17; TEMP 37; O2SAT 91
--- NOTE | 2024-08-24 10:48 | ED_ITS ---
HPI - Abdominal Pain 2 General: Chief Complaint: Abdominal Pain Stated Complaint: CONSTIPATION Time Seen by Provider: 08/24/24 10:36 Source: patient Mode of arrival: ambulatory Limitations: no limitations History of Present Illness: Patient is a 79-year-old female presents to ED today with a main complaint of constipation. She states she has not had a bowel movement on Tuesday. Patient underwent back surgery by Dr. Sharpe on Tuesday. Procedure performed listed below: Procedure: 1. L3-4 laminectomy with partial facete ctomy 2. L4-5 laminectomy with partial facete ctomy She was noted to have a dural tear during the procedure. Patient is not complaining of a headache. She states she is having back pain but this is controllable by her oxycodone. She has been seen here in the emergency department twice with complaints of back pain since the surgery. She at one point was say that the pain medication is not working but then later will state that she does get relief for approximately 4 to 6 hours after taking a tablet but seems concerned that the medication wears off after that time. It was clarified multiple times that when she does take an oxycodone tablet that this does help with her discomfort. Patient concerned because the medications are making her constipated. She has tried [id number] medications to help alleviate her constipation but has been unsuccessful. She is not having any urinary retention or incontinence. Patient has been ambulatory since the surgery. She is not complaining of any weakness or sensory loss to her legs. Pertinent past history: constipation Onset (ago): day(s) Pain Consistency: constant Severity: moderate Radiation: none Migration to: no migration Exacerbating factors: nothing Relieving factors: nothing Associated Symptoms: Reports constipation; Denies chills, dysuria, fever(s), hematochezia, melena, nausea and vomiting Related Data Home Medications Medication Instructions Recorded Confirmed aspirin 81 mg tablet,delayed 81 mg PO DAILY 04/08/20 08/24/24 release cholecalciferol (vitamin D3) 25 25 mcg PO DAILY 04/08/20 08/24/24 mcg (1,000 unit) tablet (Vitamin D3) hydroxyurea 500 mg capsule 500 mg PO Q48H 04/08/20 08/24/24 naproxen sodium 220 mg tablet 220 mg PO BID PRN Pain 04/08/20 08/24/24 (Aleve) losartan 25 mg tablet 50 mg PO DAILY 08/17/24 08/24/24 bisacodyl 5 mg tablet (Laxative 5 mg PO PRN PRN Constipation 08/24/24 08/24/24 (bisacodyl)) Previous Rx's Medication Instructions Recorded oxycodone 5 mg tablet 5 mg PO Q6H PRN pain 7 days #28 08/20/24 tabs Allergies Allergy/AdvReac Type Severity Reaction Status Date / Time tramadol Allergy Unknown Unknown Verified 08/24/24 11:50 acetaminophen [From Tylenol] Allergy Unknown Verified 08/21/24 19:09 celecoxib [From Celebrex] Allergy ALGY-Rash Verified 08/21/24 19:09 codeine Allergy Unknown Verified 08/21/24 19:09 Review of Systems 2 Const: Denies: fever(s), chills, body aches, fatigue or malaise Card: Denies: chest pain Resp: Denies: dyspnea GI: Reports: constipation; Denies: abdominal pain, nausea, vomiting, hematochezia or melena : Denies: flank pain or dysuria Musc: Reports: back pain; Denies: neck pain, extremity pain, extremity swelling, joint pain or joint swelling Neuro: Denies: headache(s), numbness in extremities, weakness in extremities, sensory changes or difficulty walking PFSH ED 2 PFSH: Social History Smoking and tobacco/nicotine status: never used tobacco/nicotine Physical Exam 2 Const: COMMON NORMALS: no acute distress, average body habitus, patient oriented x3, no limitations, healthy appearing, alert and well nourished G ENERAL APPEARANCE: cooperative ORIENTATION/CONSCIOUSNESS: Yes awake, Yes oriented to person, Yes oriented to place and Yes oriented to time Resp: COMMON NORMALS: normal respiratory effort and clear to auscultation bilaterally AUSCULTATION: clear to auscultation bilaterally Cardio: COMMON NORMALS: regular rhythm RATE: tachycardic RHYTHM: regular rhythm GI: COMMON NORMALS: Normal to inspection, nondistended, normoactive bowel sounds present, Soft to palpation, non-tender, No hepatosplenomegaly present and no masses INSPECTION: Yes normal to inspection AUSCULTATION: Yes normoactive bowel sounds PALPATION: Yes Soft to palpation and Yes No hepatosplenomegaly present : COMMON NORMALS: Yes no CVA tenderness BLADDER/KIDNEY EXAM: Yes no CVA tenderness Back/Pelvis: COMMON NORMALS: no CVA tenderness LUMBAR SPINE/LOWER BACK: No lumbar spinal tenderness and No paraspinal muscle tenderness PELVIS: Yes buttocks normal SACROILIAC JOINTS: Yes SI joints normal SACRUM: no tenderness COCCYX: no tenderness OTHER: surgical incision looks clean and well healing Extremity: COMMON NORMALS: normal to inspection, full ROM, capillary refill normal, no joint enlargement, no clubbing, cyanosis or edema, no calf tenderness and no pedal edema GENERAL: Yes normal exam except as noted Neuro: COMMON NORMALS: patient oriented x3, moves all extremities, no focal motor deficits, no sensory deficits noted and gait normal S ENSORIUM/ORIENTATION: Yes alert, Yes oriented to person, Yes oriented to place and Yes oriented to time MOTOR EXAM: 5/5 motor strength present throughout Course 2 Vital Signs: Vital signs: Vital Signs Temperature 98.6 F 08/24/24 10:34 Pulse Rate 92 08/24/24 13:00 Respiratory Rate 16 08/24/24 13:00 Blood Pressure 164/88 08/24/24 13:00 Pulse Oximetry 93 08/24/24 13:00 Oxygen Delivery Me thod Room Air 08/24/24 13:00 MDM - Abdominal Pain Medical Decision Making Patient here for postoperative back pain as well as constipation. She does state her oxycodone does help but was concerned as the medication wears off after 4 to 6 hours. Explained to her how this was appropriate and why it is dosed every 4-6 hours. She can continue taking this as needed. Her main complaint today was constipation. She initially was trialed with a milk of molasses enema without relief. I then gave her a mineral oil enema resulting in an extremely large bowel movement. Her XR that I had obtained earlier showed a moderate amount of retained stool. Patient feels significantly better after bowel movement. Her blood work is unremarkable. UA was clear. She is stable for discharge with instructions to follow-up with her surgeon. Return to ED precautions given. She has no signs/symptoms of any complications from her recent back surgery. Medical Records I reviewed the patient's medical records. Lab Data I reviewed the patient's lab results. 08/24/24 11:19 08/24/24 11:19 Labs/Radiology: Radiology Impressions Abdomen X-Ray 08/24/24 12:49 IMPRESSION: 1. Moderate amount retained stool in the rectosigmoid colon. No acute process. Laboratory Results WBC 11.23 10^3/uL (3.29-11.43) 08/24/24 11:19 RBC 4.30 10^6/uL (3.85-5.65) 08/24/24 11:19 Hgb 11.80 g/dL (11.27-16.99) 08/24/24 11:19 Hct 39.2 % (36-47) 08/24/24 11:19 MCV 91.2 fl (85-98) 08/24/24 11:19 MCH 27.4 pg (27-33) 08/24/24 11:19 MCHC 30.1 g/dL (30-55) 08/24/24 11:19 RDW 14.7 % (12.1-15.1) 08/24/24 11:19 Plt Count 281 10^3/cmm (157-399) 08/24/24 11:19 MPV 10.4 fL (7.4-10.4) 08/24/24 11:19 Neut % (Auto) 94.8 % 08/24/24 11:19 Lymph % (Auto) 2.7 % 08/24/24 11:19 [place] % (Auto) 1.1 % 08/24/24 11:19 Eos % (Auto) 0.1 % 08/24/24 11:19 Baso % (Auto) 0.2 % 08/24/24 11:19 Neut # (Auto) 10.66 10^3/uL (1.8-7.7) H 08/24/24 11:19 Lymph # (Auto) 0.3 10^3/uL (0.8-4.8) L 08/24/24 11:19 [place] # (Auto) 0.1 10^3/uL (0.2-0.9) L 08/24/24 11:19 Eos # (Auto) 0.0 10^3/uL (0.0-0.8) 08/24/24 11:19 Baso # (Auto) 0.0 10^3/uL (0.0-0.1) 08/24/24 11:19 Nucleated RBC % (auto) 0 % 08/24/24 11:19 Nucleated RBCs # 0.0 /100WBC 08/24/24 11:19 Sodium 134 mmol/L (136-145) L 08/24/24 11:19 Potassium 4.7 mmol/L (3.5-5.1) 08/24/24 11:19 Chloride 96 mmol/L (98-107) L 08/24/24 11:19 Carbon Dioxide 26 mmol/L (22-29) 08/24/24 11:19 Anion Gap 16.7 (5-19) 08/24/24 11:19 BUN 25 mg/dL (8-23) H 08/24/24 11:19 Creatinine 0.7 mg/dL (0.5-0.9) 08/24/24 11:19 GFR Calculation Not Reportable 08/24/24 11:19 Glucose 175 mg/dL (65-115) H 08/24/24 11:19 Calculated Osmolality 287 mOsm/kg (285-295) 08/24/24 11:19 Calcium 8.9 mg/dL (8.5-10.5) 08/24/24 11:19 Total Bilirubin 0.5 mg/dL (0.15-1.2) 08/24/24 11:19 AST 28 U/L (0-32) 08/24/24 11:19 ALT 29 U/L (0-33) 08/24/24 11:19 Alkaline Phosphatase 118 U/L (35-105) H 08/24/24 11:19 Total Protein 7.4 g/dL (6.6-8.7) 08/24/24 11:19 Albumin 3.7 g/dL (3.5-5.2) 08/24/24 11:19 Globulin 3.7 g/dL (1.3-4.6) 08/24/24 11:19 Urine Color Yellow (Yellow) 08/24/24 11:48 Urine Appearance Clear (CLEAR) 08/24/24 11:48 Urine pH 6.0 (5-7) 08/24/24 11:48 Ur Specific [place] 1.016 (1.005-1.030) 08/24/24 11:48 Urine Protein Trace (Negative) A 08/24/24 11:48 Urine Glucose (UA) Negative (Normal) 08/24/24 11:48 Urine Ketones Negative (Negative) 08/24/24 11:48 Urine Blood 1+ (Negative) A 08/24/24 11:48 Urine Nitrate Negative (Negative) 08/24/24 11:48 Urine Bilirubin Negative (Negative) 08/24/24 11:48 Urine Urobilinogen 1.0 mg/dL (Negative) 08/24/24 11:48 Ur Leukocyte Esterase Negative (Negative) 08/24/24 11:48 Urine RBC 3-5 /hpf (0-2) 08/24/24 11:48 Urine WBC 0-5 /hpf (0-5) 08/24/24 11:48 Ur Squamous Epith Cells 0-5 /hpf (0-5) 08/24/24 11:48 Amorphous Sediment Not Reportable 08/24/24 11:48 Urine Bacteria None seen /hpf (NONE) 08/24/24 11:48 Hyaline Casts 0.40 /lpf 08/24/24 11:48 All radiology interpretation(s) finalized by discharge Discharge Plan Discharge Patient Disposition: Home Clinical Impression: Postoperative back pain, Constipation Condition: Stable Prescriptions: No Action hydroxyurea 500 mg capsule 500 mg PO Q48H aspirin 81 mg Tablet,Delayed Release (Dr/Ec) 81 mg PO DAILY Hold Instructions: Resume on 08/22/24. naproxen sodium [Aleve] 220 mg Tablet 220 mg PO BID PRN (Reason: Pain) Hold Instructions: Resume on 08/22/24. cholecalciferol (vitamin D3) [Vitamin D3] 25 mcg (1,000 unit) Tablet 25 mcg PO DAILY losartan 25 mg tablet 50 mg PO DAILY Rx Instructions: TAKE 2 TABLET BY MOUTH EVERY DAY DIRECTED oxycodone 5 mg tablet 5 mg PO Q6H PRN (Reason: pain) 7 Days Qty: 28 0RF Laxative (bisacodyl) 5 mg Tablet 5 mg PO PRN PRN (Reason: Constipation) Discharge Orders: Discharge ED (Routine); Ordered 08/24/24 Ordered By: Magy Oakes Referrals: French Hernadez DO [Primary Care Provider] - Patient Instructions: Constipation (DC), Opioid Safety, Pain Management Activity Restrictions/Additional Instructions: You may continue taking your pain medication as needed every 4-6 hours. You need to wean yourself off of this medication as pain improves. Opiate pain medication will continue to constipate you. You were able to have a large bowel movement here after an enema. While at home you need to continue stool softeners, MiraLAX, Senokot to hopefully prevent further impaction/constipation. You may follow-up with Dr. Sharpe as scheduled. Coding Level of Care Code ED Lang Interpreter for Terrie Vallecillo
[2024-08-24 11:28] VITALS: RESP 18; O2SAT 96
[2024-08-24] MEDS: morphine 4 mg/mL SDV 1 mL IM (11:28)
[2024-08-24] MEDS: ketorolac 30 mg/mL INJ IM (11:28)
[2024-08-24 11:30] LABS: Basophils % 0.2 %; Eosinophils % 0.1 %; Hematocrit 39.2 % (36-47); Lymphocytes # 0.3 10^3/uL (0.8-4.8); Lymphocytes % 2.7 %; Mean Corpuscular HGB Conc 30.1 g/dL (30-55); Mean Corpuscular Hemoglobin 27.4 pg (27-33); Mean Corpuscular Volume 91.2 fl (85-98); Mean Platelet Volume 10.4 fL (7.4-10.4); Monocytes # 0.1 10^3/uL (0.2-0.9); Monocytes % 1.1 %; Neutrophils # 10.66 10^3/uL (1.8-7.7); Neutrophils % 94.8 %; Nucleated Red Blood Cells % 0 %; Platelet Count 281 10^3/cmm (157-399); Red Cell Distribution Width 14.7 % (12.1-15.1); White Blood Count 11.23 10^3/uL (3.29-11.43)
[2024-08-24 11:47] LABS: Alanine Aminotransferase 29 U/L (0-33); Albumin Level 3.7 g/dL (3.5-5.2); Alkaline Phosphatase 118 U/L (35-105); Anion Gap 16.7 (5-19); Aspartate Amino Transferase 28 U/L (0-32); Blood Urea Nitrogen 25 mg/dL (8-23); Calcium 8.9 mg/dL (8.5-10.5); Carbon Dioxide 26 mmol/L (22-29); Chloride 96 mmol/L (98-107); Globulin 3.7 g/dL (1.3-4.6); Glucose 175 mg/dL (65-115); Osmolality Calculated 287 mOsm/kg (285-295); Potassium 4.7 mmol/L (3.5-5.1); Sodium 134 mmol/L (136-145); Total Bilirubin 0.5 mg/dL (0.15-1.2); Total Protein 7.4 g/dL (6.6-8.7)
--- NOTE | 2024-08-24 11:48 | PC.PHAR ---
patient does confirm she is not on eliquis any longer and she is allergic to tramadol so that has been removed from list as well
[2024-08-24 12:00] LABS: Bilirubin Urine Negative (Negative); Blood Urine 1+ (Negative); Glucose Urine UA Negative (Normal); Ketones Urine Negative (Negative); Leukocyte Esterase Urine Negative (Negative); Nitrate Urine Negative (Negative); Protein Urine Trace (Negative); Specific Gravity, Urine 1.016 (1.005-1.030); Urine Appearance Clear (CLEAR); Urine Color Yellow (Yellow)
[2024-08-24 12:05] LABS: Add Urine Microscopic? YES; Bacteria Urine None Seen /hpf; Squamous Epithelial Cell Urine 0-5 /hpf (0-5); WBC Urine 0-5 /hpf (0-5)
[2024-08-24 12:19] VITALS: BP 183/95; PULSE 112; RESP 16; O2SAT 94
--- NOTE | 2024-08-24 12:49 | XR_ITS ---
WS: [id number] Exam: XR abdomen min 2V [id number] Date/Time of Exam: 08/24/2024 1:12 PM Reason For Exam: constipation No bowel obstruction or free air. Moderate amount of retained stool in the rectosigmoid colon. No sig n of organ enlargement. Signs of prior cholecystectomy. 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 Bilateral hip DJD. XR/XR abdomen min 2V [id number] IMPRESSION: 1. Moderate amount retained stool in the rectosigmoid colon. No acute process.
[2024-08-24 12:53] VITALS: BP 164/88
[2024-08-24 13:00] VITALS: BP 164/88; PULSE 92; RESP 16; O2SAT 93
[2024-08-24] MEDS: mineral oil ENEMA 133 mL PR (13:34)
[2024-08-24 14:53] VITALS: BP 161/67; PULSE 98; RESP 16; O2SAT 96
== END 2024-08-24 14:51 | disposition home or self-care (01) ==
PROVIDERS: Emergency Provider Physician Assistant; PCP Electrodiagnostic Medicine
DX: G89.18 Other acute postprocedural pain (principal); M54.9 Dorsalgia, unspecified; K59.00 Constipation, unspecified
CPT/HCPCS: 36415; 74019; 80053; 81001; 85025; 96372; 99284; 99291; J1885; J2270

== ENCOUNTER → 2024-09-04 14:21 | Outpatient (BNVA) | payer MEDICARE, OTHER, SELFPAY | PROVIDERS: PCP Electrodiagnostic Medicine; Visit Provider Orthopaedic Surgery | DX: Z98.890 Other specified postprocedural states (principal) | CPT/HCPCS: 99024 ==

== ENCOUNTER → 2024-10-02 08:39 | Outpatient (BNVA) | payer MEDICARE, OTHER, SELFPAY | PROVIDERS: PCP Electrodiagnostic Medicine; Visit Provider Orthopaedic Surgery | DX: Z98.890 Other specified postprocedural states (principal) | CPT/HCPCS: 99024 ==

== ENCOUNTER → 2024-11-13 10:45 | Outpatient (BNVA) | payer MEDICARE, OTHER, SELFPAY | PROVIDERS: PCP Electrodiagnostic Medicine; Visit Provider Orthopaedic Surgery | DX: Z98.890 Other specified postprocedural states (principal) | CPT/HCPCS: 99024 ==

== ENCOUNTER → 2025-06-24 13:43 | Outpatient (BNVA) | payer MEDICARE, OTHER, SELFPAY | PROVIDERS: PCP Electrodiagnostic Medicine; Visit Provider Specialist | DX: M16.12 Unilateral primary osteoarthritis, left hip (principal) | CPT/HCPCS: 73502; 99214 ==

== ENCOUNTER → 2025-07-26 09:42 | Outpatient (BNVA) | payer MEDICARE, OTHER, SELFPAY | PROVIDERS: PCP Electrodiagnostic Medicine; Visit Provider Specialist | DX: M16.12 Unilateral primary osteoarthritis, left hip (principal) | CPT/HCPCS: 20610; 77002; J1100; J2795; J3301; J9999 ==